=== PATIENT | female | born 2000 | race Caucasian/White ===

== ENCOUNTER 2022-02-17 14:38 | Day surgery (SDC) | payer BC ==
[2022-02-17] MEDS ORDERED: hydrALAZINE 20 MG/ML VIAL SLOW IVP PRN (15:59)
== END 2022-02-17 16:11 | disposition home health service (06) ==
LOC: CSHLD/OP 14:38
PROVIDERS: ATTEND Obstetrics & Gynecology
DX: O36.8130 Decreased fetal movements, third trimester, not applicable or unspecified (principal); O24.013 Pre-existing type 1 diabetes mellitus, in pregnancy, third trimester; O99.283 Endocrine, nutritional and metabolic diseases complicating pregnancy, third trimester; E03.9 Hypothyroidism, unspecified; Z3A.34 34 weeks gestation of pregnancy; Z79.84 Long term (current) use of oral hypoglycemic drugs; Z79.890 Hormone replacement therapy
CPT/HCPCS: 99282

== ENCOUNTER 2022-02-25 21:11 | Emergency (ER) | payer BC | END 2022-02-25 22:22 | disposition home or self-care (01) | LOC: CSHERS 21:11 | DX: O26.86 Pruritic urticarial papules and plaques of pregnancy (PUPPP) (principal); O99.283 Endocrine, nutritional and metabolic diseases complicating pregnancy, third trimester; E03.9 Hypothyroidism, unspecified; O24.113 Pre-existing type 2 diabetes mellitus, in pregnancy, third trimester; Z3A.35 35 weeks gestation of pregnancy | CPT/HCPCS: 99282 ==

== ENCOUNTER 2022-03-11 10:07 | Inpatient (IN) | payer BC ==
[2022-03-10 12:24] LABS: Hemoglobin 11.4 g/dL (12.0-15.5); Mean Corpuscular HGB CONC 33.2 g/dL (32.0-36.0); Mean Corpuscular Hemoglobin 30.1 pg (27.0-33.0); Mean Corpuscular Volume 90.5 fl (81.6-98.3); Mean Platelet Volume 10.3 fl (7.4-10.4); Platelet Count 458 10x3/uL (150-450); RBC Distribution Width 14.6 % (11.5-14.5); Red Blood Cell (RBC) Count 3.79 10x6/uL (3.90-5.03); White Blood Cell (WBC) Count 9.6 10x3/uL (3.5-10.5)
[2022-03-10 13:00] LABS: Hep B Surf Ag Non-Reactive S/CO (NonReactive)
[2022-03-10 13:01] LABS: Syphilis Antibody Nonreactive (Nonreactive); Syphilis Antibody Index 0.07 S/CO (<1.00 Non-Reactive)
[2022-03-10 13:23] LABS: HBSAg Index 0.16 S/CO (0-0.99)
[2022-03-10 20:15] LABS: SARS-CoV-2 PCR by NAA Not Detected (NotDetected)
[2022-03-11] MEDS ORDERED: Famotidine/PF 20 mg/2ml Vial SLOW IVP PRN (10:30)
[2022-03-11] MEDS ORDERED: Promethazine HCl 25 MG/ML VIAL IM PRN ×2 (10:30→11:42)
[2022-03-11] MEDS ORDERED: Bicitra 30 ML UDCUP PO PRN (10:30)
[2022-03-11] MEDS ORDERED: Ondansetron PF 4 MG/2 ML Vial IVP PRN ×2 (10:30→11:42)
[2022-03-11] MEDS ORDERED: ceFAZolin 2 GM/Dextrose 50 ML 2 GM in Premix Bag 1 BAG IVPB SCH (10:30)
[2022-03-11] MEDS ORDERED: hydrALAZINE 20 MG/ML VIAL SLOW IVP PRN ×2 (10:30→12:08)
[2022-03-11 10:31] VITALS: BMI 36.6
[2022-03-11] MEDS: Lactated Ringer's 1,000 ML IV SCH ×3 (11:30→21:34)
[2022-03-11] MEDS ORDERED: Moisturizing Cream (Eucerin) 113 GM JAR TOP PRN (11:42)
[2022-03-11] MEDS ORDERED: diphenhydrAMINE 50 MG/ML VIAL IVP PRN (11:42)
[2022-03-11] MEDS ORDERED: Promethazine HCl 25 MG SUPP PR PRN (11:42)
[2022-03-11] MEDS ORDERED: Ketorolac Tromethamine 30 MG/ML VIAL IVP PRN (11:42)
[2022-03-11] MEDS ORDERED: Fentanyl 100 MCG/2 ML VIAL SLOW IVP PRN (11:42)
[2022-03-11] MEDS ORDERED: Meperidine HCl/PF 25 MG/ML VIAL SLOW IVP PRN (11:42)
[2022-03-11] MEDS ORDERED: Naloxone HCl 0.4 mg/ml Vial IV PRN (11:42)
[2022-03-11] MEDS ORDERED: Naloxone HCl 0.4 mg/ml Vial IVP PRN ×2 (11:42)
[2022-03-11] MEDS ORDERED: Ondansetron HCl/PF 4 MG/2 ML Vial IVP PRN (11:42)
[2022-03-11] MEDS ORDERED: HYDROmorphone 2 MG/ML VIAL SLOW IVP PRN (11:42)
[2022-03-11] MEDS ORDERED: Ketorolac Tromethamine 30 MG/ML VIAL IVP SCH (11:45)
[2022-03-11] MEDS ORDERED: Communication Order-Pharmacy FS SCH (11:45)
[2022-03-11] MEDS ORDERED: Fentanyl 100 MCG/2 ML VIAL ONE (11:59)
[2022-03-11] MEDS ORDERED: Morphine PF 10 MG/10 ML VIAL ONE (11:59)
[2022-03-11] MEDS ORDERED: Bisacodyl 10 MG SUPP PR PRN (12:08)
[2022-03-11] MEDS ORDERED: Boostrix 0.5 ML (Tdap) VIAL IM ONE (12:08)
[2022-03-11] MEDS ORDERED: Lanolin Ointment 7 GM TUBE TOP PRN (12:08)
[2022-03-11] MEDS ORDERED: diphenhydrAMINE 25 MG CAP PO PRN (12:08)
[2022-03-11] MEDS ORDERED: Simethicone Chewable 80 MG TAB PO PRN (12:08)
[2022-03-11] MEDS ORDERED: NS w/ Oxytocin 30 units 500 ML IV SCH (12:15)
[2022-03-11] MEDS ORDERED: Ketorolac Tromethamine 30 MG/ML VIAL ONE (13:10)
[2022-03-11] MEDS ORDERED: Ondansetron PF 4 MG/2 ML Vial ONE (13:10)
[2022-03-11] MEDS ORDERED: Phenylephrine 10 MG/ML VIAL ONE (13:10)
[2022-03-11] MEDS ORDERED: Oxytocin 10 UNITS/ML VIAL ONE (13:10)
[2022-03-11 15:14] LABS: ALT (SGPT) 6 U/L (8-55); AST (SGOT) 10 U/L (5-34); Albumin 2.9 g/dL (3.5-5.0); Alkaline Phosphatase 94 U/L (40-110); Anion Gap 15 mmol/L (10-20); BUN (Urea Nitrogen) 10 mg/dL (7.0-18.7); Bilirubin, Total 0.5 mg/dL (0.2-1.2); Calc. Creatinine Clearance 196 mL/min (70-130); Calcium 8.8 mg/dL (7.8-10.44); Carbon Dioxide 20 mmol/L (22-29); Chloride 105 mmol/L (98-107); Globulin 3.2 g/dL (2.4-3.5); Glucose 162 mg/dL (70-105); Protein, Total 6.1 g/dL (6.0-8.3); Sodium 136 mmol/L (136-145)
[2022-03-11] MEDS: Ibuprofen 800 MG TAB PO SCH (16:28)
[2022-03-11] MEDS: Docusate 100 MG CAP PO SCH (21:33)
[2022-03-11] MEDS: Ferrous Sulfate 325 MG TAB PO SCH (21:33)
[2022-03-12] MEDS: Lactated Ringer's 1,000 ML IV SCH ×3 (00:19→19:44)
[2022-03-12 04:21] LABS: Hemoglobin 11.1 g/dL (12.0-15.5); Mean Corpuscular HGB CONC 33.5 g/dL (32.0-36.0); Mean Corpuscular Hemoglobin 30.7 pg (27.0-33.0); Mean Corpuscular Volume 91.7 fl (81.6-98.3); Mean Platelet Volume 10.1 fl (7.4-10.4); Platelet Count 361 10x3/uL (150-450); RBC Distribution Width 14.9 % (11.5-14.5); Red Blood Cell (RBC) Count 3.61 10x6/uL (3.90-5.03); White Blood Cell (WBC) Count 13.2 10x3/uL (3.5-10.5)
[2022-03-12] MEDS: Ibuprofen 800 MG TAB PO SCH ×3 (06:02→21:59)
[2022-03-12] MEDS: Levothyroxine Sodium 100 MCG TAB PO SCH (06:27)
[2022-03-12] MEDS: HYDROcodone/Acetaminophen 5/325 mg Tablet PO PRN ×3 (08:00→19:43)
[2022-03-12] MEDS: Prenatal Vitamin 1 TAB PO SCH (08:01)
[2022-03-12] MEDS: Docusate 100 MG CAP PO SCH ×2 (08:01→21:59)
[2022-03-12] MEDS: Ferrous Sulfate 325 MG TAB PO SCH ×2 (08:03→22:01)
[2022-03-13] MEDS: Lactated Ringer's 1,000 ML IV SCH ×2 (04:42→10:49)
[2022-03-13] MEDS: HYDROcodone/Acetaminophen 5/325 mg Tablet PO PRN ×4 (06:08→20:20)
[2022-03-13] MEDS: Ibuprofen 800 MG TAB PO SCH ×3 (06:08→21:21)
[2022-03-13] MEDS: Levothyroxine Sodium 100 MCG TAB PO SCH (06:08)
[2022-03-13] MEDS: Ferrous Sulfate 325 MG TAB PO SCH ×2 (07:36→20:21)
[2022-03-13] MEDS: Prenatal Vitamin 1 TAB PO SCH (09:55)
[2022-03-13] MEDS: Docusate 100 MG CAP PO SCH ×2 (09:55→20:20)
[2022-03-14] MEDS: Ibuprofen 800 MG TAB PO SCH (05:29)
[2022-03-14] MEDS: Levothyroxine Sodium 100 MCG TAB PO SCH (06:29)
[2022-03-14 08:07] VITALS: BP 116/78; TEMP 98.9
[2022-03-14] MEDS: HYDROcodone/Acetaminophen 5/325 mg Tablet PO PRN (08:46)
[2022-03-14] MEDS: Docusate 100 MG CAP PO SCH (08:46)
[2022-03-14] MEDS: Prenatal Vitamin 1 TAB PO SCH (08:46)
[2022-03-14] MEDS: Lactated Ringer's 1,000 ML IV SCH ×2 (11:40→11:41)
[2022-03-14] MEDS: Ferrous Sulfate 325 MG TAB PO SCH (11:41)
== END 2022-03-14 12:25 | disposition home or self-care (01) | DRG 786 ==
LOC: CSHLD 10:07 → CSHPP 15:45
PROVIDERS: ADMIT Obstetrics & Gynecology; ATTEND Obstetrics & Gynecology
PROC: 10D00Z1 Extraction of Products of Conception, Low, Open Approach (ICD-10-PCS; principal; 2022-03-11)
DX: O24.02 Pre-existing type 1 diabetes mellitus, in childbirth (principal); K83.1 Obstruction of bile duct; O26.62 Liver and biliary tract disorders in childbirth; Z3A.37 37 weeks gestation of pregnancy; Z37.0 Single live birth; E10.9 Type 1 diabetes mellitus without complications; Z20.822 Contact with and (suspected) exposure to COVID-19; E03.9 Hypothyroidism, unspecified; O99.284 Endocrine, nutritional and metabolic diseases complicating childbirth; O77.0 Labor and delivery complicated by meconium in amniotic fluid; Z79.890 Hormone replacement therapy
CPT/HCPCS: 36415; 51702; 80053; 85027; 86780; 86850; 86900; 86901; 87340; J1885; J2274; J2370; J2405; J2550; J2590; J3010; J7120; S0028; U0003; U0005

== ENCOUNTER 2024-04-30 12:09 | Day surgery (SDC) | payer BC ==
[2024-04-30 12:39] VITALS: BMI 37.4
[2024-04-30 13:22] LABS: #Basophils 0.03 10x3/uL (0.0-0.2); #Eosinphils 0.22 10x3/uL (0.0-0.5); #Monocytes 0.67 10x3/uL (0.0-1.1); #Neutrophils 7.88 10x3/uL (1.5-8.4); %Basophils 0.3 % (0.0-2.0); %Eosinophils 2.1 % (0.0-6.0); %Lymphocytes 15.8 % (18.0-47.0); %Monocytes 6.4 % (0.0-10.0); %Neutrophils 74.7 % (40.0-75.0); Hematocrit 30.8 % (34.9-44.5); Hemoglobin 10.6 g/dL (12.0-15.5); Mean Corpuscular HGB CONC 34.4 g/dL (32.0-36.0); Mean Corpuscular Hemoglobin 31.9 pg (27.0-33.0); Mean Corpuscular Volume 92.8 fL (81.6-98.3); Mean Platelet Volume 10.2 fL (7.4-10.4); Platelet Count 346 10x3/uL (150-450); RBC Distribution Width 13.8 % (11.5-14.5); Red Blood Cell (RBC) Count 3.32 10x6/uL (3.90-5.03); White Blood Cell (WBC) Count 10.5 10x3/uL (3.5-10.5)
[2024-04-30 13:34] LABS: ALT (SGPT) 8 U/L (8-55); AST (SGOT) 13 U/L (5-34); Albumin 2.6 g/dL (3.5-5.0); Alkaline Phosphatase 79 U/L (40-110); Anion Gap 15 mmol/L (10-20); BUN (Urea Nitrogen) 10 mg/dL (7.0-18.7); Bilirubin, Total 0.2 mg/dL (0.2-1.2); Calc. Creatinine Clearance 207 mL/min (70-130); Calcium 9.1 mg/dL (7.8-10.44); Carbon Dioxide 20 mmol/L (22-29); Chloride 105 mmol/L (98-107); Estimated GFR 125; Globulin 4.2 g/dL (2.4-3.5); Glucose 155 mg/dL (70-105); Potassium 4.2 mmol/L (3.5-5.1); Protein, Total 6.8 g/dL (6.0-8.3); Sodium 136 mmol/L (136-145)
[2024-04-30 13:48] LABS: Creatinine, Urine 127.6 mg/dL (47-110)
[2024-04-30] MEDS ORDERED: Acetaminophen 500 MG TAB PO SCH (14:00)
[2024-04-30] MEDS: diphenhydrAMINE 25 MG CAP PO PRN (14:16)
[2024-04-30] MEDS: Metoclopramide HCl 10 MG TAB PO SCH (14:17)
== END 2024-04-30 14:21 | disposition home or self-care (01) ==
LOC: CSHLD/OP 12:09
PROVIDERS: ATTEND Obstetrics & Gynecology
DX: O99.891 Other specified diseases and conditions complicating pregnancy (principal); R51.9 Headache, unspecified; R03.0 Elevated blood-pressure reading, without diagnosis of hypertension; O99.283 Endocrine, nutritional and metabolic diseases complicating pregnancy, third trimester; E03.9 Hypothyroidism, unspecified; O24.013 Pre-existing type 1 diabetes mellitus, in pregnancy, third trimester; O34.211 Maternal care for low transverse scar from previous cesarean delivery; O26.643 Intrahepatic cholestasis of pregnancy, third trimester; K83.1 Obstruction of bile duct; O13.3 Gestational [pregnancy-induced] hypertension without significant proteinuria, third trimester; Z79.890 Hormone replacement therapy; Z96.41 Presence of insulin pump (external) (internal); Z79.899 Other long term (current) drug therapy; Z79.82 Long term (current) use of aspirin; Z3A.29 29 weeks gestation of pregnancy
CPT/HCPCS: 36415; 80053; 82570; 84156; 85025

== ENCOUNTER 2024-05-13 16:50 | Day surgery (SDC) | payer BC ==
[2024-05-13] MEDS ORDERED: hydrALAZINE 20 MG/ML VIAL SLOW IVP PRN (17:17)
[2024-05-13 17:18] VITALS: BMI 36.8
[2024-05-13 17:42] LABS: Bilirubin Neg (Negative); Blood, Urine 10 (Negative); Clarity Cloudy (Clear); Glucose, Urine (Dipstick) Normal (Negative); Ketone, Urine Negative (Negative); Leukocyte Negative (Negative); Nitrite Negative (Negative); Protein, Urine (Dipstick) 100 mg/dl (Neg-Trace); Specific Gravity, Urine 1.025 (1.005-1.030); Urobilinogen Normal mg/dL (Less than 2)
[2024-05-13 18:14] LABS: Creatinine, Urine 265.93 mg/dL (47-110)
[2024-05-13 18:21] LABS: CAUTI Indications for Culture Pregnancy; RBC/HPF 0-3 HPF (0-3); WBC/HPF 0-3 HPF (0-3)
[2024-05-13 18:22] LABS: Bacteria/HPF 2+ HPF (None Seen); Mucous/LPF 3+ LPF (<2+)
[2024-05-13 18:23] LABS: Urine Culture Reflex Yes Yes
[2024-05-13 19:11] LABS: #Basophils 0.02 10x3/uL (0.0-0.2); #Eosinphils 0.05 10x3/uL (0.0-0.5); #Monocytes 0.55 10x3/uL (0.0-1.1); #Neutrophils 4.04 10x3/uL (1.5-8.4); %Basophils 0.4 % (0.0-2.0); %Eosinophils 0.9 % (0.0-6.0); %Lymphocytes 16.2 % (18.0-47.0); %Monocytes 9.8 % (0.0-10.0); Hematocrit 30.6 % (34.9-44.5); Hemoglobin 10.4 g/dL (12.0-15.5); Mean Corpuscular Hemoglobin 31.1 pg (27.0-33.0); Mean Corpuscular Volume 91.6 fL (81.6-98.3); Mean Platelet Volume 9.9 fL (7.4-10.4); Platelet Count 311 10x3/uL (150-450); RBC Distribution Width 14.2 % (11.5-14.5); Red Blood Cell (RBC) Count 3.34 10x6/uL (3.90-5.03); White Blood Cell (WBC) Count 5.6 10x3/uL (3.5-10.5)
[2024-05-13 19:27] LABS: ALT (SGPT) 8 U/L (8-55); AST (SGOT) 13 U/L (5-34); Albumin 2.6 g/dL (3.5-5.0); Alkaline Phosphatase 91 U/L (40-110); Anion Gap 15 mmol/L (10-20); BUN (Urea Nitrogen) 11 mg/dL (7.0-18.7); Bilirubin, Total 0.2 mg/dL (0.2-1.2); Calc. Creatinine Clearance 214 mL/min (70-130); Calcium 8.6 mg/dL (7.8-10.44); Carbon Dioxide 19 mmol/L (22-29); Chloride 107 mmol/L (98-107); Estimated GFR 127; Globulin 3.6 g/dL (2.4-3.5); Glucose 116 mg/dL (70-105); Potassium 3.5 mmol/L (3.5-5.1); Protein, Total 6.2 g/dL (6.0-8.3); Sodium 137 mmol/L (136-145)
[2024-05-13] MEDS ORDERED: Lactated Ringer's 1,000 ML IV SCH (20:00)
[2024-05-13] MEDS: Metoclopramide HCl 10 MG (2 mL) VIAL IVP SCH (20:09)
[2024-05-13] MEDS: diphenhydrAMINE 50 MG/ML VIAL IVP SCH (20:10)
== END 2024-05-13 21:21 | disposition home or self-care (01) ==
LOC: CSHLD/OP 16:50
PROVIDERS: ATTEND Obstetrics & Gynecology
DX: O99.891 Other specified diseases and conditions complicating pregnancy (principal); R51.9 Headache, unspecified; O00.01 Abdominal pregnancy with intrauterine pregnancy; O24.013 Pre-existing type 1 diabetes mellitus, in pregnancy, third trimester; E10.649 Type 1 diabetes mellitus with hypoglycemia without coma; O34.211 Maternal care for low transverse scar from previous cesarean delivery; O99.283 Endocrine, nutritional and metabolic diseases complicating pregnancy, third trimester; E03.9 Hypothyroidism, unspecified; O26.643 Intrahepatic cholestasis of pregnancy, third trimester; Z79.4 Long term (current) use of insulin; Z79.899 Other long term (current) drug therapy; Z3A.31 31 weeks gestation of pregnancy
CPT/HCPCS: 76819; 80053; 81001; 82570; 84156; 85025; 87086; J1200; J2765